=== PATIENT | male | born 1945 | race Caucasian/White ===

== ENCOUNTER 2020-03-14 12:32 | Inpatient (IN) ==
--- NOTE | 2020-03-14 13:23 | Diag Imaging Result Doc PS360 ---
EXAM: CT HEAD W/O CONTRAST INDICATION: altered mental TECHNIQUE: This exam was performed using automated exposure control, adjustment of mA or kV according to patient size, and/or use of iterative reconstruction technique. COMPARISON: 11/20/2019 FINDINGS: There is suggestion of minimal white matter microangiopathy, stable. There is no definite acute infarct given the limited sensitivity of CT versus MRI. There is no discrete intracranial mass, mass effect, or intracranial hemorrhage. The surrounding soft tissues and bony structures are essentially unremarkable. IMPRESSION: Stable very mild chronic white matter changes. No definite acute intracranial pathology by CT. Electronically signed by Gabriel Canada 03/14/2020 1:21 PM
[2020-03-14 13:32] LABS: BASO# 0.03 X1000 (0.0-0.2); BASO% 0.4 % (0.0-0.8); EOS# 0.16 X1000 (0.0-0.7); EOS% 2.2 % (0.0-10.0); HEMATOCRIT 42.8 % (42.0-52.0); HEMOGLOBIN 14.7 g/dL (14.0-18.0); LYMPH# 1.36 X1000 (1.2-3.4); LYMPH% 18.7 % (20.5-51.1); MCH 27.9 PG (27-31); MCHC 34.3 g/dL (33-37); MCV 81.2 FL (81-99); MONO# 0.53 X1000 (0.11-0.59); MONO% 7.3 % (1.7-9.3); MPV 11.9 FL (7.4-10.4); NEUT% 71.4 % (42.2-75.2); PLT 187 X1000 (130-400); RBC 5.27 XMIL (4.7-6.1); WBC 7.28 X1000 (4.8-10.8)
[2020-03-14 13:41] LABS: AGAP 14; ALB/GLOB RATIO 1.7; ALKALINE PHOSPHATASE 65 U/L (32-122); BUN 29 mg/dL (8-22); CALCIUM 9.4 mg/dL (8.8-10.2); CHLORIDE 100 mmol/L (98-107); COSMO 288; ESTIMATED GFR > 60; GLUCOSE 285 mg/dL (70-104); GOT 12 U/L (10-34); GPT 13 U/L (10-44); POTASSIUM 5.1 mmol/L (3.5-5.1); SODIUM 136 mmol/L (136-145); TCO2 22 mmol/L (25-35); TOTAL BILIRUBIN 0.32 mg/dL (0.20-1.00); TOTAL PROTEIN 6.3 g/dL (6.3-8.3)
[2020-03-14] MEDS ORDERED: NS 1,000 ML IV ONE ×2 (13:42→16:00)
--- NOTE | 2020-03-14 15:50 | EKG Report ---
Test Performed on : 03/14/2020 12:58:45 PM Test Reason : ED. No order in [place] Blood Pressure : / mmHG Vent. Rate : 070 BPM Atrial Rate : 070 BPM P-R Int : 150 ms QRS Dur : 098 ms QT Int : 384 ms P-R-T Axes : 046 056 071 degrees QTc Int : 414 ms Normal sinus rhythm. Normal ECG When compared with ECG of 14-AUG-2018 10:50, No significant change was found Unconfirmed Result
--- NOTE | 2020-03-14 15:57 | Diag Imaging Result Doc PS360 ---
EXAM: MRI BRAIN W/WO CONTRAST INDICATION: stroke COMPARISON: CT head dated 03/14/2020. No prior MRI brain is available for comparison. FINDINGS: There is mild to moderate diffuse brain atrophy. There is focal restricted diffusion involving the caudate tail and periventricular white matter on the left consistent with an acute lacunar infarct. No other restricted diffusion is appreciated. This cannot be seen on the recent CT suggesting that it is hyperacute. There is very little if any associated T2/FLAIR hyperintensity of yet to correspond to the acute infarct. There is patchy T2/FLAIR hyperintensity in the periventricular and subcortical white matter indicating mild microangiopathy. There is no discrete intracranial mass, mass effect, or intracranial hemorrhage. There is no evidence of abnormal intracranial enhancement. There is mild left frontal sinus mucosal disease. Surrounding soft tissues and bony structures are essentially unremarkable, otherwise. IMPRESSION: 1.Early acute lacunar infarct involving the caudate tail and periventricular white matter on the left. 2.Mild white matter microangiopathy. Electronically signed by Gabriel Canada 03/14/2020 3:55 PM
[2020-03-14 16:07] LABS: URINE SOURCE CLEAN CATCH
[2020-03-14 16:16] LABS: BILIRUBIN URINE NEGATIVE (NEGATIVE); BLOOD URINE NEGATIVE (NEGATIVE); COLOR YELLOW; GLUCOSE URINE >1000 mg/dL (NEGATIVE); KETONE URINE NEGATIVE (NEGATIVE); LEUKOCYTES URINE NEGATIVE (NEGATIVE); NITRITE URINE NEGATIVE (NEGATIVE); PH URINE 5.5; PROTEIN URINE TRACE mg/dL (NEGATIVE); SP GRAVITY URINE 1.024; TURBIDITY URINE CLEAR (CLEAR); UROBILINOGEN URINE NORMAL (NORMAL)
[2020-03-14 16:20] LABS: UR EPITHELIAL CELLS <10 /HPF (<10); URINE BACTERIA NEGATIVE /HPF; URINE RBC <10 /HPF (<10); URINE WBC <10 /HPF (<10)
--- NOTE | 2020-03-14 17:21 | PROVIDER DOCUMENTATION ---
This chart was entered by Beulah Lemus Scribe, acting as scribe for Marco Degroot DO. HPI-Neurological Disorder - General Chief Complaint: Weakness Stated Complaint: RIGHTSIDE GIVEN OUT,JUST TIRED PER PT Time Seen by Provider: 03/14/20 12:40 Source: patient Allergies/Adverse Reactions: Patient Allergies Allergy/AdvReac Type Severity Reaction Status Date / Time No Known Allergies Allergy Verified 03/14/20 17:14 Home Medications: Home Medication List Medication Instructions Recorded Confirmed Last Taken Type Cyclobenzaprine HCl 5 mg PO DAILY 10/24/17 08/14/18 Unknown History Glipizide [Glipizide ER] 10 mg PO BID 10/24/17 08/14/18 Unknown History Insulin Detemir [Levemir] 40 unit SUBQ DAILY 10/24/17 08/14/18 Unknown History Levothyroxine [Synthroid] 75 microgm PO DAILY 10/24/17 08/14/18 Unknown History Meloxicam [Mobic] 15 mg PO DAILY 10/24/17 08/14/18 Unknown History Metformin HCl 1,000 mg PO BID 10/24/17 08/14/18 Unknown History SIMVAstatin [Zocor] 40 mg PO QHS 10/24/17 08/14/18 Unknown History Tamsulosin [Flomax] 0.4 mg PO DAILY 10/24/17 08/14/18 Unknown History Aspirin [Cesar Chewable] 81 mg PO DAILY 08/14/18 08/14/18 Unknown History Ciprofloxacin HCl [Cipro] 500 mg PO BID #14 tab 08/14/18 Unknown Rx Finasteride [Proscar] 5 mg PO DAILY 08/14/18 08/14/18 Unknown History Insulin Aspart [Novolog] 5 unit SQ DIRECTED 08/14/18 08/14/18 Unknown History Losartan Potassium [Cozaar] 50 mg PO DAILY 08/14/18 08/14/18 Unknown History - History of Present Illness-Neuro Nature of Presenting Problem: 74yowm presents to ED cc right side weakness for last month and then 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 Pt denies SUAREZ/SOB/CP. He is A&Ox3 but does have some slurred speech upon exam. Severity: reports: mild Onset/Duration: reports: other (1 month) Timing: reports: still present Context: reports: impaired speech, facial droop (right) Character of Altered Mental Status: reports: N/A Any recent trauma/injury?: reports: none Character of Deficits: reports: new weakness New weakness or altered sensation location:: reports: RUE, RLE Cognitive Baseline: alert, oriented x3 Gait Baseline: walks without assistance Associated Symptoms: reports: slurred speech, weakness (right side) Similar Symptoms Previously?: No Recently seen or treated by another doctor?: No Review of Systems - Adult - REVIEW OF SYSTEMS - ADULT Constitutional: reports: see HPI. denies: chills, fever, fatique Eyes: reports: no symptoms reported Ears, Nose, Mouth & Throat: reports: no symptoms reported Cardiovascular: reports: see HPI. denies: chest pain Respiratory: reports: see HPI. denies: cough, shortness of breath Gastrointestinal: reports: no symptoms reported Genitourinary: reports: no symptoms reported Musculoskeletal: reports: no symptoms reported Integumentary: reports: no symptoms reported Neurological: reports: see HPI, slurred speech, other (right side weakness). denies: headache/migraines Psychiatric: reports: no symptoms reported Endocrine: reports: no symptoms reported Hematologic/Lymphatic: reports: no symptoms reported Allergic/Immunologic: reports: no symptoms reported All Other Systems: Reviewed and Negative Past History - Adult - PAST MEDICAL HISTORY-ADULT Review of Records: reports: Nursing Assessment Review, Medications Reviewed, Social history reviewed & non-contributory. Major Childhood Illnesses: reports: denies history Cardiovascular: reports: hyperlipidemia Respiratory: reports: denies history Gastrointestinal: reports: denies history Obstetrical/Gynecological: reports: denies history Genitourinary: reports: denies history Musculoskeletal: reports: denies history Neurological: reports: denies history Endocrine/Immune: reports: Diabetes, thyroid disorder Other Conditions: reports: denies history - PRIOR SURGERIES/PROCEDURES Surgical/Procedure History: reports: reviewed, not pertinent - IMMUNIZATION STATUS Childhood Immunizations: See Nurse Assessment Flu Vaccine: See Nurse Assessment - FAMILY HISTORY Family History: reviewed, not pertinent Physical Exam- Neurological - Physical Exam-Neuro Initial Vital Signs Reviewed: Yes General Appearance: appears well, alert, no apparent distress. negative: anxious, combative Eye Exam: bilateral eye: normal inspection, PERRL HENMT: normocephalic/atraumatic, moist mucous membranes, normal ENT inspection. negative: angioedema Head Injury: no evidence of injury. negative: active bleeding Neck: supple, normal inspection. negative: carotid bruit Respiratory: chest non-tender, lungs clear, normal breath sounds. negative: rhonchi, wheezing Cardiovascular: normal peripheral pulses, regular rate, rhythm, no edema. negative: bradycardia, tachycardia Abdominal Exam: normal bowel sounds, non tender, soft. negative: guarding, rebound Lymphatic: no adenopathy. negative: enlargement Extremity: normal capillary refill, pelvis stable. 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 negative: abnormal gag reflex Coordination/Gait: ABN nose to finger (R). negative: ABN nose to finger (L) Motor/Sensory: no sensory deficit, no pronator drift, weak motor strength RUE, weak motor strength RLE Neurologic: facial droop (right), motor weakness (RUE/RLE). negative: sensory deficit Integumentary: normal color, normal turgor, warm/dry. negative: jaundice Psych/Mental Status: normal mood/affect, oriented x 3. negative: anxious - Glascow Coma Scale Best Eye Response: (4) open spontaneously Best Verbal Response: (5) oriented Best Motor Response: (6) obeys commands Total Glascow Score: 15 Progress - PLAN OF CARE/RESULTS Progress/Plan/Lab Results: Vital Signs - 8 hr 03/14/20 12:51 03/14/20 13:30 03/14/20 14:00 Temperature 98.4 F Pulse Rate 70 66 63 Respiratory Rate 18 19 15 Blood Pressure 112/59 120/59 112/55 O2 Sat by Pulse Oximetry 98 97 98 03/14/20 14:30 03/14/20 15:23 03/14/20 16:00 Temperature Pulse Rate 81 64 63 Respiratory Rate 18 21 19 Blood Pressure 115/55 160/78 157/79 O2 Sat by Pulse Oximetry 97 99 99 03/14/20 17:00 Temperature Pulse Rate 63 Respiratory Rate 18 Blood Pressure 161/81 O2 Sat by Pulse Oximetry 99 Laboratory Results - last 24 hr 03/14/20 03/14/20 03/14/20 12:47 12:53 12:53 WBC RBC Hgb Hct MCV MCH MCHC RDW Std Deviation Plt Count MPV Immature Gran % (Auto) Neut % (Auto) Lymph % (Auto) [place] % (Auto) Eos % (Auto) Baso % (Auto) Immature Gran # (Auto) Neut # (Auto) Lymph # (Auto) [place] # (Auto) Eos # (Auto) Baso # (Auto) Sodium 136 Potassium 5.1 Chloride 100 Carbon Dioxide 22 L Anion Gap 14 BUN 29 H Creatinine 1.0 Estimated GFR/1.73 m2 > 60 BUN/Creatinine Ratio 29 Glucose 285 H POC Glucose 250 H Calculated Osmolality 288 Calcium 9.4 Total Bilirubin 0.32 AST 12 ALT 13 Alkaline Phosphatase 65 Creatine Kinase 55 Troponin T High Sens Total Protein 6.3 Albumin 4.0 Globulin 2.3 Albumin/Globulin Ratio 1.7 Urine Source Urine Color Urine Turbidity Urine pH Ur Specific [place] Urine Protein Ur Glucose (Stick) Ur Ketones (Stick) Urine Blood Urine Nitrite Urine Bilirubin Urobilinogen Dipstick Urine Leukocytes Urine WBC (Auto) Urine RBC (Auto) U Epithel Cells (Auto) Urine Bacteria (Auto) 03/14/20 03/14/20 03/14/20 12:53 12:53 15:27 WBC 7.28 RBC 5.27 Hgb 14.7 Hct 42.8 MCV 81.2 MCH 27.9 MCHC 34.3 RDW Std Deviation 13.0 Plt Count 187 MPV 11.9 H Immature Gran % (Auto) 0.0 Neut % (Auto) 71.4 Lymph % (Auto) 18.7 L [place] % (Auto) 7.3 Eos % (Auto) 2.2 Baso % (Auto) 0.4 Immature Gran # (Auto) 0.00 Neut # (Auto) 5.20 Lymph # (Auto) 1.36 [place] # (Auto) 0.53 Eos # (Auto) 0.16 Baso # (Auto) 0.03 Sodium Potassium Chloride Carbon Dioxide Anion Gap BUN Creatinine Estimated GFR/1.73 m2 BUN/Creatinine Ratio Glucose POC Glucose Calculated Osmolality Calcium Total Bilirubin AST ALT Alkaline Phosphatase Creatine Kinase Troponin T High Sens 20 H Total Protein Albumin Globulin Albumin/Globulin Ratio Urine Source CLEAN CATCH Urine Color YELLOW Urine Turbidity CLEAR Urine pH 5.5 Ur Specific [place] 1.024 Urine Protein TRACE A Ur Glucose (Stick) >1000 A Ur Ketones (Stick) NEGATIVE Urine Blood NEGATIVE Urine Nitrite NEGATIVE Urine Bilirubin NEGATIVE Urobilinogen Dipstick NORMAL Urine Leukocytes NEGATIVE Urine WBC (Auto) <10 Urine RBC (Auto) <10 U Epithel Cells (Auto) <10 Urine Bacteria (Auto) NEGATIVE Orders Category Date Time Status NEWS Score 2-4:Order NEWS Lactate Series NOW Care 03/14/20 12:[address] HEAD W/O CONTRAST [CT] Stat Exams 03/14/20 12:43 Completed MRI BRAIN W/WO CONTRAST [MRI] Stat Exams 03/14/20 13:41 Completed CBC WITH ELECTRONIC DIFF [HEME] Stat Lab 03/14/20 12:53 Completed CK PROFILE [SP CHEM] Stat Lab 03/14/20 12:53 Completed COMPREHENSIVE METABOLIC PANEL [CHEM] Stat Lab 03/14/20 12:53 Completed TROPONIN T HIGH SENSITIVITY Stat Lab 03/14/20 12:53 Completed UA NIMS W/REFLEX CULT [URINALYSIS] Stat Lab 03/14/20 15:27 Completed 0.9% Sodium Chloride Inj [Ns] 1,000 ml Med 03/14/20 16:00 Active IV 125 mls/hr 0.9% Sodium Chloride Inj [Ns] 1,000 ml Med 03/14/20 13:42 Discontinued IV 999 mls/hr EKG [EKG] Stat Ther 03/14/20 12:58 Draft Result Diagrams: 03/14/20 12:53 03/14/20 12:53 - EKG 1 Time of EKG reading by physician:: 13:41 EKG Read and Signed by:: Marco Degroot EKG Interpretation (*Must complete 3 of following elements*): Normal Rate: 70 Rhythm: NSR [place]: normal QRS: normal PA Interval: normal - CT/MRI 1 CT Study: Head Impression: See EMR Report (IMPRESSION: Stable very mild chronic white matter changes. No definite acute intracranial pathology by CT. Electronically signed by Gabriel Canada 03/14/2020 1:21 PM) 2 MRI Study: Brain Impression: See EMR Report (MPRESSION: 1.Early acute lacunar infarct involving the caudate tail and periventricular white matter on the left. 2.Mild white matter microangiopathy. Electronically signed by Gabriel Canada 03/14/2020 3:55 PM) - CONSULTS/PCP/HOSPITALIST Notification #1 *Consult/PCP/Hospitalist*: Dr. Shepherd Time Discussed: 15:20 (Spoke with Dr Shepherd again at 1720 and he will admit) Consult Disposition: other (wait on MRI and call him back) #2 Consult: Junior/Transfer Center Time Discussed: 16:24 Consult Disposition: other (will contact Dr. Harp and have him return call) #3 Consult: DR Saavedra Time Discussed: 17:06 (no need to transfer. Nothing to offer that cannot be done here) Departure - Departure Date of Disposition Decision: 03/14/20 Time of Disposition Decision: 16:00 DIAGNOSIS: Lacunar infarct, acute Disposition: ADMITTED INPATIENT 09 Certified Medical Emergency: Emergent Condition: Stable Referrals and Follow-Ups: Devonte Shepherd MD [Primary Care Provider] - - Critical Care Note This patient required my direct & personal management of CC.: No Attestation - Physician/ SILVINA Attestation Patient care was provided by Advanced Practice Provider:: No The physician spent face to face time with patient:: Yes Advanced Practice Provider documentation review:: Supervising physician onsite and consulted in the evaluation and care of this patient. The physician did have a face to face encounter with the patient. - NIH Stroke Scale NIH Type: Initial Evaluation Level of Consciousness: 0-Alert LOC Questions (ask month and age): 0-Answers Both Correctly LOC Commands (ask to open & close eyes;make a fist, let go): 0-Obeys Both Correctly Best Gaze (horizontal eye movement): 0-Normal Visual (use finger movement, counting or visual threat): 0-No Visual Loss Facial Palsy (show teeth or raise eyebrows & close eyes tght: 1-Minor Paralysis Motor Function-left arm: 0-Normal Motor Function-right arm: 2-Some Effort Against [place] Motor Function-left le-Normal Motor Function-right le-Some Effort Against [place] Limb Ataxia([id number], or heel to matos): 1-Present in one limb (right) Sensory(pin prick to face,arms,trunk,legs-compare side/side): 0-No Ataxia Best Language(name item/read sentence.Ex-Down to [place]): 0-No Aphasia Dysarthria(Pt read words or say words Ex.Mama,Tip-Top,Thanks: 0-Normal Articulation NIH Total Score: 6 This chart was documented by the indicated scribe, (Beulah Lemus Scribe) and accurately reflects the services I performed and decisions made by me, Marco Degroot, DO, as attested by the provider's signature.
[2020-03-14] MEDS ORDERED: TYLENOL PO PRN (17:43)
[2020-03-14] MEDS: NS 1,000 ML IV SCH (19:09)
--- NOTE | 2020-03-14 19:35 | HISTORY AND PHYSICAL ---
PRIMARY CARE PHYSICIAN: Dr. Devonte Shepherd CHIEF COMPLAINT: Right-sided weakness. HISTORY OF PRESENT ILLNESS: A 74-year-old white male with a complicated past medical history presents for evaluation of above-mentioned symptoms. Current history of present illness began this morning. The patient states that he and his traveled from their home in the [place]/ [*] area to [place] to steel pickler some furniture. In transit, patient noted no significant symptoms. Upon arrival, patient states he attempted to get out of his truck but noted significant right-sided weakness. The patient's witnessed this and called our office describing his falling to the right. Patient was assisted back into the car and transported to the emergency department immediately. In transit, patient's noted some slurred speech. Upon arrival to the emergency department, full evaluation was pursued. CT scan revealed stable very mild chronic white matter changes. MRI was subsequently performed revealing early acute lacunar infarct involving the caudate tail and periventricular white matter on the left. Mild white matter microangiopathy. The patient was treated with IV fluids while in the emergency department with significant improvement in his overall condition. The patient will be admitted to the hospital for full evaluation and management of acute lacunar infarct. Of note, patient denies additional symptoms recently including cough, congestion, chest pains, palpitations, shortness of breath, change in bowel movements, or change in urination. PAST MEDICAL HISTORY: 1. Abnormal skin examination with multiple actinic keratoses. 2. Benign prostatic hypertrophy. 3. Mild carotid artery disease. 4. Cervical spine pain status post surgical intervention in 2000. 5. History of macular edema diagnosed in 2007. 6. Diabetes, insulin dependent. 7. Chronic dizziness. 8. Hypertension. 9. Fatigue. 10. Hyperlipidemia. 11. Hypothyroidism. 12. Ischemic heart disease with questionable history of an acute myocardial infarction in the . 13. Chronic low back pain. 14. Mild cognitive impairment. 15. Obstructive sleep apnea. 16. Osteoarthritis. 17. Overweight. 18. Palpitations. 19. History of a syncopal episode in 2008 with negative cardiac evaluation. CURRENT MEDICATIONS: 1. Aspirin 81 mg daily. 2. B complex vitamin daily. 3. Flexeril 5 mg at bedtime. 4. Finasteride 5 mg daily. 5. Flomax 0.4 mg daily. 6. Flonase 2 sprays each nostril daily as needed. 7. Glipizide 10 mg twice daily. 8. Humalog KwikPen 6 units with meals. 9. Levemir 50 units at bedtime. 10. Levothyroxine 75 mcg daily. 11. Losartan 50 mg daily. 12. Meclizine 25 mg 1/2 tablet twice daily. 13. Metformin 1000 mg twice daily. 14. Simvastatin 40 mg at bedtime. ALLERGIES: Patient answered no known drug allergies. SOCIAL HISTORY: The patient denies tobacco, alcohol or illicit drug use. 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 He does not exercise routinely. FAMILY HISTORY: Patient's father passed at age 83 secondary to complications of esophageal cancer. He had a history of Parkinson disease and diabetes. Patient's mother passed at age 85 with end-stage Alzheimer's. She also had a history of diabetes. REVIEW OF SYSTEMS: A 12 point review of systems was performed. Pertinent positives and negatives are noted in history present illness. PHYSICAL EXAMINATION: VITAL SIGNS: Temperature 97.9 degrees, heart rate 72, respirations 18, blood pressure is 166/71. GENERAL: No acute distress. HEENT: Normocephalic, atraumatic. Pupils equal, round, reactive to light. Extraocular muscles intact. Sclerae anicteric. [place] conjunctiva. Oral and nasopharynx clear without exudate. NECK: Supple. No lymphadenopathy. No thyromegaly. No bruits auscultated. CARDIOVASCULAR: Regular rate and rhythm with occasional ectopy. No significant murmurs, rubs, or gallops. PULMONARY: Clear to auscultation bilaterally. ABDOMEN: Soft, nontender, nondistended. Positive bowel sounds. EXTREMITIES: Moves all extremities well. No significant clubbing, cyanosis, or edema. NEUROLOGIC: Cranial nerves 2-12 grossly intact. Motor and sensory grossly intact. No evidence of residual deficit with exception of a mild right facial droop. DERMATOLOGIC: Evaluation reveals no evidence of rash. LABORATORY DATA: White blood cell count 7.28, hemoglobin 14.7, hematocrit 42.8, platelet count 187,000. Sodium 136, potassium 5.1, chloride 100, bicarb 22, BUN 29, creatinine 1.0, glucose 285, calcium 9.4, total bilirubin 0.32, total protein 6.3, albumin 4.0, alkaline phosphatase 65, AST 12, ALT 13, CK total 55, troponin 20. Urinalysis reveals glucose and protein present. CT scan and MRI are as described above. ASSESSMENT AND PLAN: A 74-year-old white male with past medical history as noted presents for evaluation of acute right-sided weakness and slurred speech. MRI confirmed an acute lacunar infarct. With intravenous hydration in the emergency department and time, patient's symptoms have essentially resolved. The patient will be admitted to the hospital for full evaluation and management. 1. Admit to General Medicine. 2. Acute lacunar infarct-patient will be treated with aggressive IV hydration. Blood pressure will be allowed to drift upwards to maintain adequate cerebral perfusion. The patient is currently being treated with aspirin 81 mg daily. We will increase this to 325 mg daily. We will continue to optimize management of his cholesterol and diabetes. We will follow patient on telemetry and schedule carotid Dopplers and echocardiogram in the morning. We will consult Dr. Abreu in the morning for further neurological recommendations. 3. Diabetes-patient has longstanding, largely uncontrolled diabetes. We will hold patient's glipizide for now and treat patient with metformin, Levemir, and sliding scale insulin. The patient understands this as a significant risk factor for vascular disease. We will titrate medications to optimize his blood sugar control and encourage further blood sugar control as an outpatient. 4. Hypertension-as above, patient's losartan will be held and allow blood pressure to remain slightly elevated while hospitalized to ensure adequate cerebral perfusion. We will plan to resume this at discharge. 5. Hyperlipidemia-the patient is currently treated with simvastatin therapy. This will be continued. 6. Hypothyroidism-patient is controlled on replacement. This will be continued as well. 7. Benign prostatic hypertrophy-we will continue Flomax and finasteride therapy. 8. Fluid, electrolytes, nutrition. We will monitor electrolytes. Normal saline at 75 mL an hour. Diabetic diet. 9. Prophylaxis. Patient will be placed on SCDs. We will plan to initiate Lovenox once able. cc: Devonte Shepherd MD
[2020-03-14] MEDS: ZOCOR PO SCH (21:25)
[2020-03-14] MEDS: GLUCOPHAGE PO SCH (21:26)
[2020-03-14] MEDS: ANTIVERT PO SCH (21:26)
[2020-03-14] MEDS: FLEXERIL PO SCH (21:26)
[2020-03-15] MEDS: HUMALOG SUBQ SCH ×4 (00:23→15:56)
[2020-03-15] MEDS: LEVEMIR SUBQ SCH ×2 (00:23→22:24)
[2020-03-15] MEDS: NS 1,000 ML IV SCH ×2 (01:01→09:03)
[2020-03-15] MEDS: SYNTHROID PO SCH ×2 (06:35→09:02)
[2020-03-15] MEDS: GLUCOPHAGE PO SCH ×2 (09:00→22:24)
[2020-03-15] MEDS: FLOMAX PO SCH (09:00)
[2020-03-15] MEDS: ASPIRIN PO SCH (09:00)
[2020-03-15] MEDS: ANTIVERT PO SCH ×2 (09:00→22:24)
[2020-03-15] MEDS: PROSCAR PO SCH (09:00)
[2020-03-15] MEDS ORDERED: ASPIRIN PO SCH (09:00)
--- NOTE | 2020-03-15 10:59 | NEUROLOGY CONSULTATION ---
DATE: 03/15/2020 HISTORY OF PRESENT ILLNESS: is 74 years old and there is evidence of stroke. History from the patient is that he noticed a tendency to veer to his right and he seemed weak in the right limbs. When he tried to get out of his truck yesterday, he had to hold on to the truck. He reports he was not aware of trouble with speech, but gives clear history there was significant dysarthria. I thought there might be a report of dysphasia but I cannot confirm that with history now. He reports no associated vision disturbance. He has occasional headaches, but does not recall having headache that day. There was never altered consciousness or altered awareness. He reports significant recovery over a short time yesterday, and he thinks he is just about back to baseline today. He has risk factors including hypertension, dyslipidemia, diabetes mellitus, and ischemic heart disease. He has not had previous stroke or other neurologic event. He reports he quit smoking cigarettes some years ago and chews tobacco now. OTHER PAST HISTORY: Includes hypothyroidism, BPH, sleep apnea. MEDICATIONS: He was taking daily aspirin in addition to medicines for his other risk factors. LABORATORY DATA: Lab shows blood sugars mid 200s on admission, mid 100s today. Last lipid profile was good. Brain MRI done with and without contrast shows restricted diffusion in the left caudate. Usual white matter changes are seen across both hemispheres. Carotid ultrasound 4 months ago was unremarkable. He has had carotid ultrasound and echocardiogram today with reports pending. PHYSICAL EXAMINATION: Vital signs: He has been afebrile here. Systolic blood pressures have ranged 110s to 120s initially and 120s to 160s in recent hours. His heart rate has been 50s -70s. General: is awake, alert, attentive, cheerful, appropriate. Neurologic: Speech is not significantly dysarthric now. Language function is intact on careful bedside testing. Recent and remote memory are good. I did not test his cognitive function more thoroughly. Head and neck: Unremarkable. He has full visual joshi tested by confrontational finger counting. Extraocular movements are full. The right nasolabial fold is less prominent than the left but facial motility is good bilaterally. Gag is intact. Tongue is midline. He can hear. I can overcome the right arm at the deltoid grading 4/5, wrist extensor 4+/5. 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 Tone is slightly increased in the right arm. He did better with left finger-to- nose than with the right. He did rapid alternating movements a little better with the left hand than the right. He reports equal sensation over the hands. He has a very slight stocking pattern of sensory loss over the feet. Reflexes are absent at the ankles and 1+ symmetrically at the wrists. Plantar response is silent bilaterally. He has good power in each leg. I did not test his gait. IMPRESSION: Reported sudden onset of gait difficulty with right-sided weakness, transient dysarthria, no definite vision disturbance, no definite language deficit. Features are consistent with acute ischemic stroke as demonstrated on MRI. He has risk factors as outlined above. RECOMMENDATIONS: I encouraged him to be aggressive with management of his risk factors for cerebrovascular disease and to keep follow up with Dr. Shepherd. If the carotid ultrasound and echocardiogram do not show surprises, I think he could be discharged soon with plans to treat blood pressure cautiously for a few days and the more aggressively by the end of the week. I would continue aggressive management of lipids and blood sugar, continue aspirin. Since this is likely small-vessel disease, I do not think there is strong indication to add a 2nd antiplatelet agent, and I would continue antiplatelet monotherapy. Thanks for asking Neurology to see . cc: MD Devonte Wesley III, MD MTDD
[2020-03-15] MEDS ORDERED: INSULIN PEN NEEDLES ONE (13:05)
--- NOTE | 2020-03-15 15:34 | ECHO REPORT ---
ORDER DATE: 03/15/2020 MEASUREMENTS: Septal thickness 0.9, left ventricular internal diastole 4.4, posterior wall thickness 0.9, left ventricular internal diameter systole 2.8, aortic root 3.1, left atrium 3.1. SUMMARY: 1. Very difficult study for interpretation due to very limited acoustic window quality. Intravenous echo contrast agent Optison was utilized to enhance endocardial definition. 2. Aortic valve is trileaflet and opens normally on 2-dimensional images. The peak gradient across aortic valve is less than 5 mmHg. Mitral and tricuspid valves are without gross structural abnormality while pulmonic valve is not well demonstrated. The aortic root is normal in size. 3. Normal left ventricular dimensions suggested. Estimated left ejection fraction appears to be at least 55%. No regional wall motion abnormality can be appreciated. Left atrium, right atrium, right ventricle are grossly normal in size with grossly preserved right ventricular systolic function. 4. No pericardial effusion. 5. Inferior vena cava appearance suggests normal central venous pressure. CONCLUSIONS: 1. Very difficult study for interpretation. 2. No significant valvular abnormality appreciated. 3. Estimated left ejection fraction at least 55%. cc: MD Devonte Peterson MD
--- NOTE | 2020-03-15 18:55 | PROGRESS NOTE ---
DATE: 03/15/2020 SUBJECTIVE: The patient was admitted yesterday with right-sided weakness. MRI confirmed an acute lacunar infarct. The patient was treated with aggressive but cautious hydration. Aspirin was increased to 325 mg daily. Overnight, patient states he did reasonably well. He continues to have mild, but non-limiting weakness on the right side. This morning, Dr. Abreu was consulted. Echocardiogram and carotid Dopplers were performed. This evening, patient states his day has been good. Overall, his condition continues to improve. He does have some unsteadiness with walking, although this is approaching his baseline. He denies fevers, chills, nausea, vomiting, shortness of breath, or chest discomfort. OBJECTIVE: Vital signs: T-max 98.3 degrees, heart rate 58 to 64, respirations 16 to 20, blood pressure 129 to 161 over 55 to 73. General: Well nourished, well developed, no acute distress. Cardiovascular: Regular rate and rhythm. No significant murmurs, rubs, or gallops. Pulmonary: Clear to auscultation bilaterally. Abdomen: Soft, nontender, nondistended. Positive bowel sounds. Extremities: Moves all extremities well. No significant clubbing, cyanosis, or edema. Dermatologic: Evaluation reveals no evidence of rash. Neurologic: Reveals minimal weakness on the right side and a minimal right facial droop. LABORATORY DATA: None. ASSESSMENT AND PLAN: 1. Acute lacunar infarct--We will continue aggressive management with IV fluids, aspirin 325 mg daily, and blood sugar control. We will allow patient's blood pressure to remain slightly elevated for now. We will follow up carotid Doppler and echocardiogram. I appreciate Dr. Abreu's consultation. 2. Diabetes--While at home, blood sugars have been poorly controlled. Patient admits to significant dietary indiscretion. We will continue his current dose of Levemir and metformin. We will continue sliding scale insulin. Blood sugars have improved while hospitalized. 3. Hypertension--Patient's losartan has been held while hospitalized. We will plan to resume this at discharge. 4. Hyperlipidemia--We will continue simvastatin therapy. As an outpatient, cholesterol is well controlled. 5. Hypothyroidism--We will continue patient on replacement. 6. Benign prostatic hypertrophy--We will continue patient on Flomax and finasteride therapy. DISPOSITION: At this point, patient continues to require senior care care in a hospital setting. We will plan discharge home once appropriate. cc: Devonte Shepherd MD
[2020-03-15] MEDS: ZOCOR PO SCH (22:24)
[2020-03-15] MEDS: FLEXERIL PO SCH (22:24)
[2020-03-16] MEDS: HUMALOG SUBQ SCH ×2 (00:43→06:54)
[2020-03-16 07:22] VITALS: BP 129/60
[2020-03-16] MEDS: GLUCOPHAGE PO SCH (08:24)
[2020-03-16] MEDS: FLOMAX PO SCH (08:24)
[2020-03-16] MEDS: ANTIVERT PO SCH (08:24)
[2020-03-16] MEDS: SYNTHROID PO SCH (08:24)
[2020-03-16] MEDS: ASPIRIN PO SCH (08:25)
[2020-03-16] MEDS: PROSCAR PO SCH (08:25)
--- NOTE | 2020-03-16 13:50 | DISCHARGE SUMMARY ---
ADMISSION DATE: 03/14/2020 DISCHARGE DATE: 03/16/2020 ADMISSION DIAGNOSIS: Right-sided weakness. DISCHARGE DIAGNOSES: 1. Acute lacunar infarct. 2. Diabetes, present on arrival. 3. Hypertension, present on arrival. 4. Hyperlipidemia, present on arrival. 5. Hypothyroidism, present on arrival. 6. Benign prostatic hypertrophy, present on arrival. CONSULTATIONS: Dr. Abreu with Neurology was consulted for further evaluation and management of acute stroke. PROCEDURES: 1. CT scan of the head was performed on 03/14/2020 which revealed stable, very mild chronic white matter changes. No definite acute intracranial pathology by CT. 2. MRI of the brain was performed on 03/14/2020 which revealed early acute lacunar infarct involving the caudate tail and periventricular white matter on the left. Mild white matter microangiopathy. 3. Echocardiogram was performed on 03/15/2020 which revealed very difficult study for interpretation. No significant valvular abnormality appreciated. Estimated ejection fraction of at least 55%. 4. Carotid Doppler was performed on 03/15/2020 preliminary results of no significant disease history. HISTORY AND PHYSICAL EXAMINATION: Vital signs: See admit physical examination. Prior to discharge, temperature 98.1 degrees, heart rate 58, respirations 18, blood pressure is 129/60. General: Well nourished, well developed, no acute distress. Cardiovascular: Regular rate and rhythm. No significant murmurs, rubs, or gallops. Pulmonary: Clear to auscultation bilaterally. Abdomen: Soft, nontender, nondistended. Positive bowel sounds. Extremities: Moves all extremities well. No significant clubbing, cyanosis, or edema. Neurologic: Cranial cranial nerves 2-12 grossly intact. Minimal right facial droop and modest decrease in muscle tone to the right upper extremity on the right lower extremity. LABORATORY DATA: Prior to discharge, none. HOSPITAL COURSE: Patient was admitted as per history and physical examination. Hospital course per condition is as follows. 1. Acute lacunar - upon admission, patient was noted to have a mild right hemiparesis and right facial droop. Prior to admission, patient was noted to have some slurred speech. With aggressive hydration, increasing aspirin to full dose, and holding lisinopril, patient's overall condition improved considerably. At the time of discharge, patient was approaching his baseline. For now, we will continue aggressive cholesterol control. Patient understands the importance of better blood sugar control as this has not been well controlled in the past. We increased the patient's aspirin from 81 mg to 325 mg daily. We will slowly work the patient's blood pressure down to a normal range as described below. 2. Diabetes - patient has longstanding history of poorly controlled blood sugars. We stressed the importance of better control. For now, we will continue his current regimen. He is to keep a blood sugar log between now and the next visit. We will determine if further intervention is warranted. 3. Hypertension - the patient's lisinopril was held while hospitalized. Blood pressure has remained reasonably controlled. We will continue to hold this for now, but anticipate resuming this as an outpatient. He is to keep a blood pressure log between now and next visit. 4. Hyperlipidemia - patient was continued on simvastatin therapy. Last total cholesterol in clinic was 130. We remain aware. 5. Hypothyroidism - patient was continued on replacement. 6. Benign prostatic hypertrophy - the patient is treated with both Flomax and finasteride therapy. Symptoms remained adequately controlled. DISCHARGE CONDITION: Good. DISPOSITION: Discharge to home. MEDICATIONS: 1. Meclizine 12.5 mg twice daily. 2. Tylenol 650 mg every 6 hours as needed. 3. Aspirin 325 mg daily. 4. Flexeril 5 mg at bedtime. 5. Levemir 40 units subcutaneously at bedtime. 6. Lispro insulin 6 units 3 times daily with meals. 7. Glipizide 10 mg twice daily. 8. Levothyroxine 75 mcg daily. 9. Metformin 1000 mg twice daily. 10. Simvastatin 40 mg at bedtime. 11. Tamsulosin 0.4 mg daily. 12. Finasteride 5 mg daily. 13. Patient has been instructed to hold losartan until further notice. FOLLOWUP: Patient has a follow-up with me in approximately 1 to 2 weeks. cc: Devonte Shepherd MD
--- NOTE | 2020-03-17 12:36 | Carotid Study ---
DATE: 03/15/2020 STUDY: Bilateral duplex and color flow imaging of the carotid arteries performed using the GE vivid E9 ultrasound system with a 9 L-D transducer. REFERRING PHYSICIAN: Dr. Garibay. IDENTIFICATION: A 74-year-old male. IMAGING NURSE: Beatrice Bonilla RVT. INDICATION: CVA - stroke. FINDINGS: The velocities in cm/sec of both carotid systems were reviewed. There is forward flow in the right vertebral and left vertebral arteries. The right ICA/CCA ratio is 0.99, corresponding to a percent stenosis of 0% to 39%. The left ICA/CCA ratio is 0.72, corresponding to a percent stenosis of 0% to 39%. INTERPRETATION: Mild atherosclerotic disease of the distal common and internal carotid arteries bilaterally, without evidence of a hemodynamically significant lesion in either carotid systems. When compared to a previous study performed on 10/20/2019, there has been no significant progression of disease in either carotid system. cc: MD Devonte Olson MD
== END 2020-03-16 09:56 | disposition home or self-care (01) | DRG 65 ==
LOC: ED 12:32 → 4N 17:29
PROVIDERS: ADMIT Internal Medicine; ATTEND Internal Medicine